=== PATIENT | female | born 1945 | race Caucasian/White ===

== ENCOUNTER → 2019-09-03 13:24 | Outpatient (CLI) | payer MEDICARE, SELFPAY ==
--- NOTE | ~2019-09-03 | MM_ITS ---
EXAMINATION: MM screening rina BI w kathy HISTORY: Screening mammogram TECHNIQUE: Craniocaudal and mediolateral oblique 3-D tomosynthesis images were obtained and synthetic 2-D images were generated. CAD analysis was submitted and interpreted. COMPARISON: 03/29/2017, 05/10/2013 bilateral digital screening mammogram examinations BREAST PARENCHYMAL COMPOSITION: There are scattered areas of fibroglandular density. FINDINGS: Stable mild fibroglandular asymmetry. Minimal benign calcification. There is no evidence of suspicious mass, calcification, or architectural distortion to suggest malignancy in either breast. There has been no suspicious interval change. IMPRESSION: 1. No mammographic evidence of malignancy. 2. Recommend routine screening mammography in one year. BI-RADS Category 2: Benign finding(s). Reviewed, dictated and finalized at location A. ET BROKER
== END ==
PROVIDERS: PCP Internal Medicine; Visit Provider Internal Medicine
DX: Z12.31 Encounter for screening mammogram for malignant neoplasm of breast (principal)
CPT/HCPCS: 77063; 77067

== ENCOUNTER 2019-09-11 01:38 | Day surgery (SDC) | payer MEDICARE, SELFPAY ==
[2019-09-05 13:58] VITALS: BMI 25.4
[2019-09-11 07:55] VITALS: BP 147/81; PULSE 79; RESP 20; TEMP 36.6; O2SAT 95; BMI 26.4
--- NOTE | 2019-09-11 08:12 | PM.HPGS ---
History of Present Illness History of Present Illness Consent: Risks, benefits, and alternatives have been discussed and questions answered. Patient agrees to proceed with procedure. Chief complaint: pers hx colon polyp Narrative: Nella Aguilera is a 74 year old female Undergoing screening colonoscopy. She has history of polyps removed 10 years ago. [facility] Family History Family History Mother Hypertension Family history of diabetes mellitus in first degree relative Social History Social History Smoking status: Former smoker Second hand tobacco smoke exposure: Yes Smoking end date: 08/07/79 Alcohol intake: current Meds Home Medications and Allergies Home Medications Medication Instructions Recorded Confirmed Type cholecalciferol (vitamin D3) 50 2,000 unit PO DAILY 06/03/19 09/05/19 History mcg (2,000 unit) tablet lisinopril 10 mg tablet 10 mg PO DAILY 06/03/19 09/05/19 History verapamil 180 mg tablet,extended 180 mg PO DAILY 06/03/19 09/05/19 History release rivaroxaban 20 mg tablet 20 mg PO QPM #90 tablet 08/12/19 09/05/19 Rx levothyroxine 125 mcg PO DAILY 09/05/19 09/05/19 History atorvastatin 40 mg tablet 40 mg PO DAILY #90 tablet 09/10/19 Rx losartan 100 1 tablet PO DAILY 09/10/19 History mg-hydrochlorothiazide 12.5 mg tablet Allergies Allergy/AdvReac Type Severity Reaction Status Date / Time codeine AdvReac Unknown Nausea Verified 09/11/19 08:05 Exam Const: General: alert Orientation/consciousness: patient oriented x3 Resp: Auscultation: clear to auscultation bilaterally Cardio: Rhythm: regular rhythm GI: GI Palp: Yes Soft to palpation and No Tenderness to palpation present (GI) Neuro: General: patient oriented x3 Assessment and Plan Assessment and plan (1) Colon cancer screening: Code(s): Z12.11 - Encounter for screening for malignant neoplasm of colon Status: Acute Assessment and Plan: Colonoscopy with possible biopsy or polypectomy or cautery or injection of substances.
--- NOTE | 2019-09-11 08:19 | WPDANESEPPF ---
Anes - Initial Pre Proc Eval Procedure: Operation Date: 09/11/19 09:00 Proposed Procedures p Screening Colonoscopy - Fred Ferrer MD Date/Time: 09/11/19 08:19 Surgeon: Fred Ferrer MD Pre Op Diagnosis: pers hx colon polyp Patient Data Age: 74 Gender: F Height: 1.52 m Weight: 59 kg Allergies Allergy/AdvReac Type Severity Reaction Status Date / Time codeine AdvReac Unknown Nausea Verified 09/11/19 08:05 Home Medications Medication Instructions Recorded Confirmed Type cholecalciferol (vitamin D3) 50 2,000 unit PO DAILY 06/03/19 09/05/19 History mcg (2,000 unit) tablet lisinopril 10 mg tablet 10 mg PO DAILY 06/03/19 09/05/19 History verapamil 180 mg tablet,extended 180 mg PO DAILY 06/03/19 09/05/19 History release rivaroxaban 20 mg tablet 20 mg PO QPM #90 tablet 08/12/19 09/05/19 Rx levothyroxine 125 mcg PO DAILY 09/05/19 09/05/19 History atorvastatin 40 mg tablet 40 mg PO DAILY #90 tablet 09/10/19 Rx losartan 100 1 tablet PO DAILY 09/10/19 History mg-hydrochlorothiazide 12.5 mg tablet Patient hx anesthesia problems: none Family hx anesthesia problems: none PMFSH Past Medical History Medical History (Updated 09/11/19 @ 08:21 by Tanvir Cantu MD) Atrial fibrillation Cancer THYROID CANCER 2010-IODINE RADIATON PRIOR TO SURGERY Essential (primary) hypertension Hypothyroidism Mixed hyperlipidemia Osteopenia Family History Family History Mother Hypertension Family history of diabetes mellitus in first degree relative Social History Social History Smoking status: Former smoker Second hand tobacco smoke exposure: Yes Smoking end date: 08/07/79 Alcohol intake: current Anes - Eval Final PreProcedure Day of Procedure 09/11/19 08:19 Patient weight: overweight Heart: regular rate and rhythm Lungs: clear to auscultation and normal air movement Airway: Mallampati scale class II Neurological: alert and oriented Last oral intake: >/= 8 hours ASA classification: III Emergent: no Anesthetic plan: proceed Anesthesia type and monitoring: general GIVS Informed Consent: The patient's anesthetic plan and its attendant risks and benefits were discussed with the patient/family/POA. Questions were solicited and answers provided to the satisfaction of the patient/family/POA.
[2019-09-11] MEDS: LACTATED RINGERS 1,000 ML 150 ML IV CONT (08:29)
[2019-09-11 09:12] VITALS: BP 116/82; PULSE 94; RESP 22; O2SAT 100
[2019-09-11 09:22] VITALS: BP 125/76; PULSE 73; RESP 24; O2SAT 100
[2019-09-11 09:32] VITALS: BP 131/76; PULSE 71; RESP 23; O2SAT 100
== END 2019-09-11 09:41 | disposition home or self-care (01) ==
PROVIDERS: PCP Internal Medicine; Visit Provider Internal Medicine Gastroenterology
PROC: 0DJD8ZZ Inspection of Lower Intestinal Tract, Via Natural or Artificial Opening Endoscopic (ICD-10-PCS; CPT 45378; principal; 2019-09-11 09:00)
DX: Z12.11 Encounter for screening for malignant neoplasm of colon (principal); D12.3 Benign neoplasm of transverse colon; D12.5 Benign neoplasm of sigmoid colon; D12.8 Benign neoplasm of rectum; K64.8 Other hemorrhoids; K64.4 Residual hemorrhoidal skin tags; K57.30 Diverticulosis of large intestine without perforation or abscess without bleeding; I48.91 Unspecified atrial fibrillation; I10 Essential (primary) hypertension; E78.2 Mixed hyperlipidemia; E89.0 Postprocedural hypothyroidism; M85.80 Other specified disorders of bone density and structure, unspecified site; Z85.850 Personal history of malignant neoplasm of thyroid; Z79.01 Long term (current) use of anticoagulants; Z87.891 Personal history of nicotine dependence
CPT/HCPCS: 45385; 45380; 88305; J2704; J7120

== ENCOUNTER 2020-11-27 23:08 | Emergency (ER) | payer MEDICARE, SELFPAY ==
--- NOTE | ~2020-11-27 | CT_ITS ---
EXAMINATION: CT brain wo con DATE: 11/28/2020 01:26 INDICATION: Syncope. TECHNIQUE: Computed tomography (CT) of the head was performed without intravenous contrast. The mA wa s adjusted according to patient size. Iterative reconstruction technique was employed. The dose-lengt h product was 605.33 mGy-cm. COMPARISON: Head CT 11/12/2010 FINDINGS: There is a calcified 14 x 12 mm extra-axial mass at the anterior falx, consistent with a me ningioma. There is a chronic 13 mm cyst inferomedial to the basal ganglia, likely a prominent perivas cular space or arachnoid cyst. There are scattered areas of low attenuation in the cerebral white mat ter, which is within normal limits for the patient's age. There is no acute ischemic infarct or intra cranial hemorrhage. The ventricles are normal in size. There are osteomas in the frontal sinus. The m astoid air cells are normal. There is chronic anteroposterior elongation of the ocular globes. There are likely changes of ocular lens replacement surgeries. IMPRESSION: 1. 14 mm calcified extra-axial mass in the anterior falx, consistent with a meningioma, worsened from 6 mm on 11/12/2010. Reviewed, dictated and finalized at location A. IMPRESSION: 1. 14 mm calcified extra-axial mass in the anterior falx, consistent with a men ingioma, worsened from 6 mm on 11/12/2010.
--- NOTE | ~2020-11-27 | CT_ITS ---
EXAMINATION: CT cervical spine wo con DATE: 11/28/2020 01:26 INDICATION: Neck injury. TECHNIQUE: Computed tomography (CT) of the cervical spine was performed without intravenous contrast. Automated exposure control and iterative reconstruction technique were employed. The dose-length pro duct was 250.54 mGy-cm. COMPARISON: Cervical spine CT 11/12/2010 FINDINGS: There is 2 mm retrolisthesis of C4 on C5. There is 14 degrees levoscoliosis of cervical spi ne. Vertebral body heights are normal. There is a hemangioma in T2 vertebral body. There are multiple stable lytic lesions, consistent with osteopenia. There is mildly decreased disc height at C3-C4 and moderately decreased disc height from C4-3 C5 through C6-C7. There are changes of thyroidectomy. The following disc levels are specifically discussed: C2-C3: There is no uncovertebral joint osteoarthritis. There is mild bilateral facet joint osteoarthr itis. There is no neural foraminal stenosis. There is no central canal stenosis. C3-C4: There is moderate right and mild left uncovertebral joint osteoarthritis. There is moderate ri ght and mild left facet joint osteoarthritis. There is mild bilateral neural foraminal stenosis. Ther e is no central canal stenosis. C4-C5: There is severe bilateral uncovertebral joint osteoarthritis. There is moderate left facet shannen nt osteoarthritis. There is mild bilateral neural foraminal stenosis. There is mild central canal brian nosis. C5-C6: There is severe bilateral uncovertebral joint osteoarthritis. There is moderate right and mild left facet joint osteoarthritis. There is mild bilateral neural foraminal stenosis. There is mild ce ntral canal stenosis. C6-C7: There is mild bilateral uncovertebral joint osteoarthritis. There is severe bilateral facet alyx int osteoarthritis. There is mild right neural foraminal stenosis. There is mild central canal stenos is. C7-T1: There is no uncovertebral joint osteoarthritis. There is moderate right and severe left facet joint osteoarthritis. There is mild bilateral neural foraminal stenosis. There is no central canal st enosis. IMPRESSION: 1. No fracture. 2. Moderate cervical spondylosis. 3. Cervical levoscoliosis. Reviewed, dictated and finalized at location A.
[2020-11-27 23:12] VITALS: BP 130/69; PULSE 90; RESP 16; TEMP 36.5; O2SAT 94
[2020-11-27 23:18] VITALS: PULSE 80
--- NOTE | 2020-11-28 00:22 | ECG_ITS ---
Measurements Intervals [place] Rate: 85 P: 251 NH: 121 QRS: -50 QRSD: 108 T: 71 QT: 396 QTc: 471 Interpretive Statements SINUS OR ECTOPIC ATRIAL RHYTHM INCOMPLETE RIGHT BUNDLE BRANCH BLOCK INFERIOR INFARCT, AGE INDETERMINATE BORDERLINE ST-T WAVE ABNORMALITY- ANTEROLAT/HIGH LAT LEADS BASELINE WANDER- AVR, AVL, V1 ABNORMAL ECG Electronically Signed On 11-28-2020 7:34:04 CDT by Pierce Clemente D.O.
[2020-11-28] MEDS: SODIUM CHLORIDE 0.9% IV 1,000 ML 999 ML IV CONT (00:58)
[2020-11-28 01:17] LABS: Basophils Absolute Auto 0.1 K/mm3 (0.0-0.1); Basophils Percent Auto 0.6 % (0.2-1.2); Eosinophils Absolute Auto 0.1 K/mm3 (0-0.3); Eosinophils Percent Auto 0.9 % (0-4.4); Hematocrit 42.7 % (37.0-47.0); Hemoglobin 14.2 g/dL (12.0-15.0); Immature Granulocyte Absolute 0.02 K/mm3 (0.00-0.031); Immature Granulocyte Percent A 0.2 % (0-0.5); Lymphocytes Absolute Auto 2.17 K/mm3 (0.9-3.2); Lymphocytes Percent Auto 26.5 % (18.3-44.2); Mean Corpuscular HGB Conc 33.3 g/dl (32-36); Mean Corpuscular Hemoglobin 32.3 pg (26-34); Mean Platelet Volume 9.2 fl (7.4-10.4); Monocytes Absolute Auto 0.5 K/mm3 (0.1-0.6); Monocytes Percent Auto 6.4 % (2.6-8.5); Neutrophils Absolute Auto 5.4 K/mm3 (1.3-6.7); Neutrophils Percent Auto 65.4 % (45.5-73.1); Platelet Count Result 266 k/mm3 (150-375); Red Cell Distribution Width 12.6 % (11.5-14.5); White Blood Count 8.2 K/mm3 (4.5-10.0)
--- NOTE | 2020-11-28 01:21 | ED.GENADULT ---
HPI - General Adult General Chief complaint: Syncope Stated complaint: ams, snycope Time Seen by Provider: 11/28/20 00:13 History of Present Illness HPI narrative: Patient 75-year-old female presents the emergency department with chief complaint of syncope. Per the patient's family she was at a local bar and had a few glasses of wine with her sister. The patient passed out at the bar was carried home and passed out again family decided to call EMS and the patient was transported to the emergency department. Currently the patient states that she feels fine she just feels tired and wants to sleep patient reports that she had 3 glasses of wine at the bar she does report that she is on blood thinners being on a novel anticoagulant. The patient denies headache. Related Data Home Medications Medication Instructions Recorded Confirmed cholecalciferol (vitamin D3) 50 2,000 unit PO DAILY 06/03/19 08/27/20 mcg (2,000 unit) tablet levothyroxine 125 mcg PO DAILY 09/05/19 08/27/20 Allergies Allergy/AdvReac Type Severity Reaction Status Date / Time codeine AdvReac Unknown Nausea Verified 02/28/20 08:04 Review of Systems Review of Systems: Narrative: A 10 system review of systems was completed on the patient and is negative except for what is stated in the HPI. Nursing and ancillary documentation was reviewed. PMFSH Past Medical History Medical History Atrial fibrillation Cancer THYROID CANCER 2010-IODINE RADIATON PRIOR TO SURGERY Essential (primary) hypertension Hypothyroidism Kidney stone Mixed hyperlipidemia Osteopenia Surgical History Surgical History History of hernia repair History of thyroid surgery Family History Family History Mother Hypertension Family history of diabetes mellitus in first degree relative Social History Social History Smoking status: Former smoker Second hand tobacco smoke exposure: Yes Smoking end date: 08/07/79 Alcohol intake: current Exam Narrative: Exam Narrative: GENERAL: Well-appearing, well-nourished, and in no acute distress. HEAD: Normocephalic, atraumatic. EYES: PERRLA and EOMI. ENT: Nares clear, no rhinorrhea or epistaxis. Mucous membranes moist. NECK: Supple. CHEST: Clear to auscultation. No respiratory distress. HEART: Regular rate and rhythm. No murmur heard. Normal peripheral pulses. ABDOMEN: Soft, nontender, nondistended, normal active bowel sounds. EXTREMITIES: Normal range of motion. No edema. SKIN: Warm, dry, no rash. NEURO: No focal deficits. Alert and oriented x3. PSYCH: Normal mood and affect. Course Vital Signs Vital signs: Vital Signs Temperature 36.5 C 11/27/20 23:12 Pulse Rate 90 11/27/20 23:12 Respiratory Rate 16 11/27/20 23:12 Blood Pressure 130/69 11/27/20 23:12 Pulse Oximetry 94 11/27/20 23:12 Temperature 36.5 C 11/27/20 23:12 Pulse Rate 84 11/28/20 02:00 Respiratory Rate 16 11/28/20 02:00 Blood Pressure 119/76 11/28/20 02:00 Pulse Oximetry 95 11/28/20 02:00 Medical Decision Making Vital Signs Vital Signs: Vital Signs Temperature 36.5 C 11/27/20 23:12 Pulse Rate 90 11/27/20 23:12 Respiratory Rate 16 11/27/20 23:12 Blood Pressure 130/69 11/27/20 23:12 Pulse Oximetry 94 11/27/20 23:12 Temperature 36.5 C 11/27/20 23:12 Pulse Rate 84 11/28/20 02:00 Respiratory Rate 16 11/28/20 02:00 Blood Pressure 119/76 11/28/20 02:00 Pulse Oximetry 95 11/28/20 02:00 Lab Data Result diagrams: 11/28/20 00:45 11/28/20 00:45 Labs: Lab Results 11/28/20 11/28/20 11/28/20 Range/Units 00:45 00:45 00:45 WBC 8.2 (4.5-10.0) K/mm3 RBC 4.40 (4.2-5.4) M/mm3 Hgb 14.2 (12.0-15.0)
[2020-11-28 01:23] LABS: Add Urine Microscopic? YES; Amorphous Sediment Urine Few; Appearance Urine Cloudy (Clear); Bacteria Urine 4+ /hpf; Bilirubin Urine Negative (Negative); Blood Urine 1+ (Negative); Glucose Urine UA Negative (Negative); Ketones Urine Negative (Negative); Leukocyte Esterase Ur Trace LEU/UL (Negative); Mucus Urine Rare /lpf; Nitrate Urine Negative (Negative); Protein Urine Negative (Negative); Specific Grav Ur 1.008 (1.001-1.035); Squamous Epithelial Cell Urine Rare /hpf (Few); Urobilinogen Urine Negative mg/dL (<2.0)
[2020-11-28 01:24] LABS: Color Urine Yellow (Yellow)
[2020-11-28 01:26] LABS: Acetaminophen < 10 ug/mL (10-30); Ethanol 226 mg/dL (<10); INR 1.2; Partial Thromboplastin Time 35.7 SECONDS (22.3-36.8); Prothrombin Time 15.8 Seconds (11.1-14.7); Salicylate < 1.0 mg/dL (2-20)
[2020-11-28 01:33] LABS: Alanine Aminotransferase 28 U/L (4-35); Albumin Level 4.3 g/dL (3.5-5.1); Alkaline Phosphatase 75 U/L (38-126); Anion Gap 11 mmol/L (8-16); Aspartate Amino Transferase 33 U/L (14-36); Bilirubin,Total 0.2 mg/dL (0.2-1.3); Blood Urea Nitrogen 19 mg/dL (7-17); Calcium 9.6 mg/dL (8.4-10.2); Carbon Dioxide 24 mmol/L (22-30); Chloride 107 mmol/L (98-107); Estimated CRCL calculation 58 ml/min; Estimated Glomerular Filt Rate > 60; Glucose 110 mg/dL (65-105); Magnesium 1.9 mg/dL (1.6-2.3); Potassium 3.6 mmol/L (3.4-5.0); Sodium 142 mmol/L (137-145)
[2020-11-28 01:38] LABS: Troponin I < 0.012 ng/mL (0.000-0.034)
[2020-11-28 01:41] LABS: Lactic Acid Reflex 2.4 mmol/L (0.7-2.1)
[2020-11-28 01:52] LABS: Amphetamine Screen Urine Negative (Negative); Barbiturate Screen Urine Negative (Negative); Benzodiazepines Screen Urine Negative (Negative); Cannabinoid Screen Urine Negative (Negative); Cocaine Screen Urine Negative (Negative); Methadone Screen Urine Negative (Negative); Opiate Screen Urine Negative (Negative); Phencyclidine Screen Urine Negative (Negative)
[2020-11-28 02:00] VITALS: BP 119/76; PULSE 84; RESP 16; O2SAT 95
[2020-11-28 04:12] LABS: Reflex Lactic Acid Yes or No Add Lactic
== END 2020-11-28 03:08 | disposition home or self-care (01) ==
PROVIDERS: Emergency Provider Emergency Medicine; PCP Internal Medicine
DX: D32.0 Benign neoplasm of cerebral meninges (principal); F10.920 Alcohol use, unspecified with intoxication, uncomplicated; Y90.7 Blood alcohol level of 200-239 mg/100 ml; I48.91 Unspecified atrial fibrillation; I10 Essential (primary) hypertension; E03.9 Hypothyroidism, unspecified; M85.80 Other specified disorders of bone density and structure, unspecified site; E78.2 Mixed hyperlipidemia; Z79.01 Long term (current) use of anticoagulants; Z87.891 Personal history of nicotine dependence; Z85.850 Personal history of malignant neoplasm of thyroid; Z87.442 Personal history of urinary calculi; I45.10 Unspecified right bundle-branch block; R94.31 Abnormal electrocardiogram [ECG] [EKG]; M47.812 Spondylosis without myelopathy or radiculopathy, cervical region; R82.998 Other abnormal findings in urine
CPT/HCPCS: 36415; 70450; 72125; 80053; 80307; 81001; 83605; 83735; 84484; 85025; 85610; 85730; 87077; 87086; 87088; 87147; 87181; 87186; 93005; 96360; 99284; J7030

== ENCOUNTER → 2021-03-16 10:58 | Outpatient (CLI) | payer MEDICARE, SELFPAY ==
--- NOTE | ~2021-03-16 | XR_ITS ---
XR foot LT min 3V DATE: 03/16/2021 11:19 INDICATION: Left foot pain TECHNIQUE: 4 views COMPARISON: None FINDINGS: Mild plantar calcaneal enthesopathy. Diffuse osteopenia. Mild osteoarthritis at the first metatarsophalangeal joint. Os tibiale externum, normal variant. No fracture, dislocation, periosteal reaction or bone destruction. IMPRESSION: Osteopenia Mild plantar calcaneal enthesopathy Osteoarthritis at first metatarsophalangeal joint Reviewed, dictated and finalized at location A.
== END ==
PROVIDERS: PCP Internal Medicine; Visit Provider Internal Medicine
DX: M85.872 Other specified disorders of bone density and structure, left ankle and foot (principal); M77.32 Calcaneal spur, left foot; M19.072 Primary osteoarthritis, left ankle and foot
CPT/HCPCS: 73630

== ENCOUNTER 2021-12-31 09:41 | Emergency (ER) | payer MEDICARE, SELFPAY ==
--- NOTE | ~2021-12-31 | CT_ITS ---
EXAMINATION: CTA chest DATE: 12/31/2021 11:51 INDICATION: Right lateral chest wall pain. Bilateral breast pain. Fall. TECHNIQUE: Computed tomographic angiography (CTA) of the chest was performed with 100 mL Omnipaque 30 0 intravenous contrast. Automated exposure control and iterative reconstruction technique were employ ed. The dose-length product was 224.65 mGy-cm. Maximum intensity projection 3D-reconstructions of the aorta and other arteries were constructed by the technologist on a separate workstation. COMPARISON: CT abdomen and pelvis 09/08/2017 FINDINGS: There is mild emphysema. There is mild atelectasis bilaterally. No pleural effusion. There are changes of thyroidectomy. The heart size is normal. No pericardial effusion. There is ectasia of ascending aorta measuring 4.1 cm. There is calcified atherosclerosis of the aorta and many of the ot er arteries. There is a 12 mm cyst in the liver. There is a chronic 19 mm mass in left hepatic lobe w ith peripheral interrupted puddling of contrast, consistent with a hemangioma. There are surgical momo nges in the stomach. There is a fracture of anteroinferior glenoid of left scapula. There is thoracic kyphosis, dextroscoliosis, and moderate spondylosis. IMPRESSION: 1. Fracture of anteroinferior glenoid of left scapula. 2. Ectasia of ascending aorta measuring 4.1 cm. 3. Mild emphysema. Reviewed, dictated and finalized at location A.
[2021-12-31 09:52] VITALS: BP 177/91; PULSE 97; RESP 16; TEMP 36.5; O2SAT 99
--- NOTE | 2021-12-31 09:58 | ED.FALL ---
HPI - Fall General Chief Complaint: Fall Stated Complaint: Bilateral Breast Pain after Fall Monday Time Seen by Provider: 12/31/21 09:58 Source: patient Mode of arrival: ambulatory Limitations: no limitations History of Present Illness HPI Narrative: Patient is a 77-year-old female who presents the ED with report of R lateral chest wall pain. Patient reports she was walking at [employer] on Monday afternoon when she tripped and fell. Denied any prodromal symptoms. She states she fell onto her knee first and then forward onto her chest. She denies any pain in her knee, but does report having pain in her chest wall, above her breasts bilaterally, since then. The pain is worse in her right lateral chest, near her axillary region. She states the pain is worse with taking a deep breath. She denies any difficulty breathing or catching breath but does report it is hard to take a deep breath due to the pain. She called her doctor about her pain today and was referred to the ED for further evaluation. Patient is on Xarelto due to a history of atrial fibrillation. She has been taking Tylenol at home which she reports does temporarily relieve her pain. Denies any abdominal pain, fever, chills, nausea, vomiting, back pain, head injury, loss of consciousness. Related Data Home Medications Medication Instructions Recorded Confirmed cholecalciferol (vitamin D3) 50 2,000 unit PO DAILY 06/03/19 10/07/21 mcg (2,000 unit) tablet rivaroxaban 20 mg tablet (Xarelto) See Rx Instructions .Route .COMPLEX 10/07/21 10/07/21 Allergies Allergy/AdvReac Type Severity Reaction Status Date / Time codeine AdvReac Unknown Nausea Verified 10/07/21 12:51 Review of Systems Review of Systems: CONSTITUTIONAL: Denies fever, chills. CARDIOVASCULAR: Denies palpitations or edema. RESPIRATORY: Reports pain with inspiration, difficulty taking deep breath. Denies cough or dyspnea. GASTROINTESTINAL: Denies abdominal pain, nausea, vomiting. MUSCULOSKELETAL: Reports bilateral chest wall pain above breasts. Denies back pain, knee pain. NEUROLOGIC: Denies headache, HI, LOC, dizziness, lightheadedness. All systems reviewed & are unremarkable except as noted in HPI and below [facility] Past Medical History Medical History Atrial fibrillation Cancer THYROID CANCER 2010-IODINE RADIATON PRIOR TO SURGERY Essential (primary) hypertension Hypothyroidism Kidney stone Mixed hyperlipidemia Osteopenia Surgical History Surgical History History of hernia repair History of thyroid surgery Family History Family History Mother Hypertension Family history of diabetes mellitus in first degree relative Social History Social History (Updated 12/31/21 @ 10:16 by Jennifer Ruelas PA-C) Smoking packs per day: 0.15 Smoking cigarettes per day: 3.0 Years smoked: 4 Smoking pack-years: 0.60 Smoking status: Former smoker Second hand tobacco smoke exposure: Yes Smoking end date: 08/07/79 Alcohol intake: current Substance use: never Exam Narrative: GENERAL: Well appearing, well-nourished, non-toxic, in no acute distress. HEAD: Normocephalic, atraumatic. NECK: Supple. No adenopathy, no masses. RESPIRATORY: Airway patent, respirations nonlabored. Clear to auscultation bilaterally, no rales, rhonchi, wheezing. CARDIOVASCULAR: Regular rate and rhythm without murmurs, rubs, or gallops. Peripheral pulses 2+ and equal bilaterally. ABDOMINAL: Soft, nontender, nondistended, no hepatosplenomegaly. Normoactive BS. MUSCULOSKELETAL: Moves all extremities. Strength/ROM intact without gross deformities. TTP of R upper lateral chest wall, near axillary region. No significant tenderness to palpation over left upper chest wall. Full range of motion of bilateral upper extremities. No midline cervical or thoracic lumbar spi
--- NOTE | 2021-12-31 10:20 | PC.NURSE ---
pt awaiting provider assessment.
[2021-12-31 10:51] LABS: Basophils Absolute Auto 0.1 K/mm3 (0.0-0.1); Basophils Percent Auto 1.1 % (0.2-1.2); Eosinophils Absolute Auto 0.1 K/mm3 (0-0.3); Eosinophils Percent Auto 2.3 % (0-4.4); Hematocrit 39.2 % (37.0-47.0); Immature Granulocyte Absolute 0.01 K/mm3 (0.00-0.031); Immature Granulocyte Percent A 0.2 % (0-0.5); Lymphocytes Absolute Auto 2.04 K/mm3 (0.9-3.2); Lymphocytes Percent Auto 36.2 % (18.3-44.2); Mean Corpuscular HGB Conc 33.2 g/dl (32-36); Mean Corpuscular Hemoglobin 31.9 pg (26-34); Mean Corpuscular Volume 96.1 fl (80-100); Mean Platelet Volume 8.9 fl (7.4-10.4); Monocytes Absolute Auto 0.7 K/mm3 (0.1-0.6); Monocytes Percent Auto 11.5 % (2.6-8.5); Neutrophils Absolute Auto 2.7 K/mm3 (1.3-6.7); Neutrophils Percent Auto 48.7 % (45.5-73.1); Platelet Count Result 237 k/mm3 (150-375); Red Blood Count 4.08 M/mm3 (4.2-5.4); Red Cell Distribution Width 12.4 % (11.5-14.5); White Blood Count 5.6 K/mm3 (4.5-10.0)
--- NOTE | 2021-12-31 10:55 | PC.NURSE ---
Pt awaiting ct
[2021-12-31 11:02] LABS: INR 1.4; Prothrombin Time 16.9 Seconds (11.1-14.7)
[2021-12-31 11:03] LABS: Partial Thromboplastin Time 35.4 SECONDS (22.3-36.8)
[2021-12-31 11:04] LABS: Anion Gap 7 mmol/L (8-16); Blood Urea Nitrogen 24 mg/dL (7-17); Carbon Dioxide 25 mmol/L (22-30); Chloride 108 mmol/L (98-107); Estimated CRCL calculation 49 ml/min; Estimated Glomerular Filt Rate > 60; Glucose 96 mg/dL (65-110); Potassium 3.8 mmol/L (3.4-5.0); Sodium 140 mmol/L (137-145)
[2021-12-31 12:00] VITALS: BP 154/68; PULSE 72; RESP 16; O2SAT 99
--- NOTE | 2021-12-31 14:28 | PC.NURSE ---
Provider at bedside for update.
[2021-12-31 14:42] VITALS: BP 153/68; PULSE 78; RESP 16; O2SAT 100
== END 2021-12-31 14:43 | disposition home or self-care (01) ==
PROVIDERS: Physician Assistant; Emergency Provider Emergency Medicine; PCP Internal Medicine
DX: S42.102A Fracture of unspecified part of scapula, left shoulder, initial encounter for closed fracture (principal); I77.819 Aortic ectasia, unspecified site; J43.9 Emphysema, unspecified; W01.0XXA Fall on same level from slipping, tripping and stumbling without subsequent striking against object, initial encounter
CPT/HCPCS: 36415; 71275; 80048; 85025; 85610; 85730; 99284; A4565; Q9967

== ENCOUNTER 2022-03-09 11:10 | Outpatient (CLI) | payer MEDICARE, SELFPAY ==
--- NOTE | ~2022-03-09 | CT_ITS ---
EXAMINATION: CT brain wo con DATE: 03/09/2022 11:35 INDICATION: Patient fell and struck back of head a few weeks ago. TECHNIQUE: Computed tomography (CT) of the head was performed without intravenous contrast. The mA wa s adjusted according to patient size. Iterative reconstruction technique was employed. Exam dose: 60 5.33 mGy-cm total exam DLP. COMPARISON: 11/24/2020 CT brain FINDINGS: Densely calcified meningioma along the anterior falx is measures up to approximately 13.8 x 16 mm currently, compared to approximately 15 x 12 mm on 11/28/2020. Stable approximately 13 mm cyst and inferomedial aspect right basal ganglia, stable since 11/24/2020. No interval intracranial mass lesion or hemorrhage, midline shift or mass effect. No subdural or epid ural hematoma. There is moderate cerebral and cerebellar volume loss consistent with patient age. Nonspecific diminished attenuation cerebral white matter, likely due to chronic small vessel ischemic changes. Minimal cerebral atherosclerotic calcification. No orbital mass lesion. Osteomas the frontal sinuses. The included paranasal sinuses and mastoid air cells are normally devel oped and aerated otherwise. No fracture or bone destruction of the cranial vault. IMPRESSION: No acute intracranial finding or significant change since 11/28/2020, other than slight i ncreased size of a heavily calcified angioma along the anterior falx Reviewed, dictated and finalized at Location A. Reviewed, dictated and finalized at location B. IMPRESSION: No acute intracranial finding or significant change since , other than slight increased size of a heavily calcified angioma along the an terior falx
== END 2022-03-09 11:11 | disposition home or self-care (01) ==
LOC: ANHIMG 11:11
PROVIDERS: PCP Internal Medicine; Visit Provider Internal Medicine
DX: S09.90XA Unspecified injury of head, initial encounter (principal); X58.XXXA Exposure to other specified factors, initial encounter
CPT/HCPCS: 70450

== ENCOUNTER 2022-03-14 10:50 | Outpatient (CLI) | payer MEDICARE, SELFPAY ==
--- NOTE | 2022-03-16 19:37 | P.PCNHOL_ITS ---
Holter/Event Monitor Holter/Event Monitor Date of procedure: 03/16/22 Holter/Event Procedure: 24 Hr Holter Monitor Diagnosis: Atrial fibrillation Indications: 77-year-old female with atrial fibrillation Image/Tracing Quality: Good Finding: The patient was monitored for 24 hours. Underlying rhythm was sinus with a mi nimum heart rate of 48 beats per minute, average heart rate of 63 beats per minute and maximum heart rate of 108 beats per minute. Thirty-eight PVCs were seen. There 866 APCs were seen with 1 6 beat run of SVT, rate 105 BPM. No atrial fibrillation was noted. There are no pauses, av block, or ventricular tachycardia. No symptoms were recorded. Conclusion: Fairly unremarkable Holter monitor Occasional APCs and one 6 beat run of SVT No atrial fibrillation No symptoms recorded
== END 2022-03-14 10:51 | disposition home or self-care (01) ==
LOC: ANHCARD 10:51
PROVIDERS: PCP Internal Medicine; Visit Provider Internal Medicine
DX: I48.91 Unspecified atrial fibrillation (principal)
CPT/HCPCS: 93225; 93226

== ENCOUNTER 2022-12-27 11:35 | Outpatient (CLI) | payer MEDICARE, SELFPAY ==
--- NOTE | ~2022-12-27 | XR_ITS ---
EXAMINATION: XR ankle RT min 3V DATE: 12/27/2022 12:04 INDICATION: Medial right ankle pain, swelling and bruising post injury TECHNIQUE: Anteroposterior, oblique, mortise, and lateral views of the right ankle were obtained. COMPARISON: None. FINDINGS: Alignment is normal. No fracture. Joint spaces are well maintained. Small plantar calcaneal spur. No ankle joint effusion. Soft tissue swelling about the medial malleolus. IMPRESSION: 1. No acute osseous abnormality. Reviewed, dictated and finalized at location A.
== END 2022-12-27 11:36 | disposition home or self-care (01) ==
PROVIDERS: PCP Family Medicine; Visit Provider Nurse Practitioner Family
DX: M25.571 Pain in right ankle and joints of right foot (principal)
CPT/HCPCS: 73610

== ENCOUNTER 2023-03-14 09:31 | Outpatient (CLI) | payer MEDICARE, SELFPAY ==
--- NOTE | ~2023-03-14 | XR_ITS ---
EXAMINATION: XR abdomen/kub 1V DATE: 03/14/2023 10:04 INDICATION: Gross hematuria. TECHNIQUE: A supine view of the abdomen on 3 radiographs was obtained. COMPARISON: CT abdomen and pelvis 03/14/2023 FINDINGS: There are no dilated loops of bowel. There are two 5 mm stones in left kidney. IMPRESSION: 1. Left kidney stones. Reviewed, dictated and finalized at location A. IMPRESSION: 1. Left kidney stones.
--- NOTE | ~2023-03-14 | CT_ITS ---
EXAMINATION: CT abdomen pelvis wo/w con DATE: 03/14/2023 10:24 INDICATION: Gross hematuria. TECHNIQUE: Computed tomography (CT) of the abdomen and pelvis was performed without and with intraven ous contrast using a total of 130 mL Omnipaque-350 intravenous contrast with a double-bolus technique for simultaneous opacification of the renal parenchyma and renal collecting system. Automated exposu re control and iterative reconstruction technique were employed. The dose-length product was 1038.29 mGy-cm. COMPARISON: CT abdomen and pelvis 09/08/2017 FINDINGS: The visualized portions of the lung bases demonstrate mild atelectasis. No pleural effusion. The hear t size is normal. No pericardial effusion. There are changes of gastric bypass procedure. There are c ysts in the liver measuring up to 11 mm. There is a 2.1 cm hyperenhancing mass in the liver, stable f rom 09/08/2017, likely a hemangioma or focal nodular hyperplasia. The gallbladder, spleen, pancreas, an d adrenal glands are normal. There are cysts in the kidneys measuring up to 4 mm on the right. There are two 5 mm stones in left kidney. The ureters are well opacified and are normal. The bladder is not well distended. There is a pessary in the vagina. There are bilateral inguinal hernias containing fa t. There are scattered diverticula in the colon without evidence of diverticulitis. There are no dila roxanne loops of bowel. The appendix is normal. There are no pathologically enlarged lymph nodes. There i s no ascites. There is a benign bone island in right ilium. There is mild lumbar and thoracic spondyl osis. IMPRESSION: 1. Nonobstructing left kidney stones. Reviewed, dictated and finalized at location A.
[2023-03-14 10:04] LABS: Estimated Glomerular Filt Rate > 60
== END 2023-03-14 09:32 | disposition home or self-care (01) ==
PROVIDERS: PCP Family Medicine; Visit Provider Nurse Practitioner Adult Health
DX: R31.0 Gross hematuria (principal); N20.0 Calculus of kidney
CPT/HCPCS: 74018; 74178; Q9967

== ENCOUNTER 2023-04-24 10:05 | Outpatient (CLI) | payer MEDICARE, SELFPAY ==
--- NOTE | ~2023-04-24 | XR_ITS ---
EXAMINATION: XR abdomen/kub 1V INDICATION: Left-sided kidney stone TECHNIQUE: Supine views of the abdomen were obtained on 2 radiographs. COMPARISON: 03/14/2023 FINDINGS: There appears to have been interval treatment of the previously described stone of the left kidney lower pole. A 3 mm stone fragment persists in the left kidney lower pole. No definite stone f ragments are identified along the expected course of the left ureter. There are phleboliths of the pe lvis. A pessary is noted. IMPRESSION: 1. Findings consistent with interval treatment of the previously described left kidney lower pole sto ne with 3 mm stone of the left kidney lower pole but no stones identified on the expected course of t he left ureter. Reviewed, dictated and finalized at location B. IMPRESSION: 1. Findings consistent with interval treatment of the previously described left kidney lower pole stone with 3 mm stone of the left kidney lower pole but no s tones identified on the expected course of the left ureter.
== END 2023-04-24 10:06 | disposition home or self-care (01) ==
PROVIDERS: PCP Family Medicine; Visit Provider Urology
DX: N20.0 Calculus of kidney (principal)
CPT/HCPCS: 74018

== ENCOUNTER 2023-10-27 13:12 | Emergency (ER) | payer MEDICARE, SELFPAY ==
--- NOTE | ~2023-10-27 | XR_ITS ---
EXAMINATION: XR ankle LT min 3V DATE: 10/27/2023 14:21 INDICATION: Medial left ankle pain TECHNIQUE: Anteroposterior, oblique, mortise, and lateral views of the left ankle were obtained. COMPARISON: None. FINDINGS: Alignment is normal. No fracture. Joint spaces are well maintained. Small plantar calcaneal spur. No ankle joint effusion. The soft tissues are unremarkable. IMPRESSION: 1. No left ankle joint effusion or acute osseous abnormalities. Reviewed, dictated and finalized at location A.
[2023-10-27 13:23] VITALS: BP 114/73; PULSE 59; RESP 16; TEMP 37.1; O2SAT 98
--- NOTE | 2023-10-27 14:11 | ED.LOWEXIN ---
HPI - Extremity Injury (Lower) General Chief Complaint: Extremity Injury, Lower Stated Complaint: left ankle pain Time Seen by Provider: 10/27/23 14:05 Source: patient and RN notes reviewed Mode of arrival: ambulatory Limitations: no limitations History of Present Illness HPI Narrative: Patient presents today with a 7-10 day history of left medial ankle pain. She denies any injury or trauma, but states approximately 2 weeks ago she started using an elliptical and treadmill at her gym and and believes this may be contributing to her symptoms. She currently rates her pain 5/10 and has tried ice, heat, and Tylenol without much relief. Denies numbness or tingling in her ankle or foot. Denies swelling or redness. Related Data Home Medications Medication Instructions Recorded Confirmed cholecalciferol (vitamin D3) 50 2,000 unit PO DAILY 06/03/19 10/27/23 mcg (2,000 unit) tablet metoprolol succinate 25 mg 25 mg PO DAILY 10/27/23 10/27/23 tablet,extended release 24 hr Allergies Allergy/AdvReac Type Severity Reaction Status Date / Time codeine AdvReac Unknown Nausea Verified 06/01/23 13:02 Review of Systems Review of Systems: CONSTITUTIONAL: Denies body aches, fever, chills, or sweats. EYES: Denies visual changes, redness, or discharge. ENT: Denies rhinorrhea, congestion, sore throat, or otalgia. CARDIOVASCULAR: Denies chest pain, palpitations, or edema. RESPIRATORY: Denies cough or dyspnea. GASTROINTESTINAL: Denies abdominal pain, nausea, vomiting, or diarrhea. GENITOURINARY: Denies dysuria or hematuria. SKIN: Denies rash, itching, or wounds. MUSCULOSKELETAL: Denies back pain, or myalgia.+ left ankle pain NEUROLOGIC: Denies headache, numbness, tingling, or weakness. PSYCH: Denies depression or anxiety. [facility] Past Medical History Medical History Atrial fibrillation Cancer THYROID CANCER 2010-IODINE RADIATON PRIOR TO SURGERY Essential (primary) hypertension Hypothyroidism Kidney stone Mixed hyperlipidemia Osteopenia Surgical History Surgical History History of hernia repair History of thyroid surgery Family History Family History Mother Hypertension Family history of diabetes mellitus in first degree relative Social History Social History Smoking packs per day: 0.15 Smoking cigarettes per day: 3.0 Years smoked: 4 Smoking pack-years: 0.60 Smoking status: Former smoker Second hand tobacco smoke exposure: Yes Smoking end date: 08/07/79 Alcohol intake: current Drinks per week: 4 Substance use: never Substance use type: does not use Lack of Transportation: No Lack of Food: Never True Current Housing: I Have Housing Concerned About Future Housing: No Difficulty Paying Gas/Electric Bills: No Difficulty Paying for Meds: No Currently Unemployed: No Education: Bachelor's Degree Difficulty w/ Childcare or Family Care: No Comments At time of signature, I have reviewed and agree with nursing past medical, surgical, social and family history unless otherwise noted. Please see nursing chart for further information. There is no relevant family history pertinent to the presenting complaint Exam Narrative: GENERAL: Well-appearing, well-nourished, and in no acute distress. HEAD: Normocephalic, atraumatic. EYES: EOMI. No redness or drainage. Conjunctivae normal. ENT: Mucous membranes pink and moist. NECK: Normal AROM. CHEST: No respiratory distress. EXTREMITIES: Left ankle: Soft tissue tenderness to the anteromedial ankle. No bony tenderness of the medial or lateral malleolus or the Achilles tendon. No tenderness to the foot. Patient has scant edema to the bilateral lower legs and ankles. No erythema or ecchymosis.
== END 2023-10-27 14:55 | disposition home or self-care (01) ==
PROVIDERS: Emergency Provider Nurse Practitioner; PCP Nurse Practitioner
DX: S93.402A Sprain of unspecified ligament of left ankle, initial encounter (principal); X58.XXXA Exposure to other specified factors, initial encounter; I48.91 Unspecified atrial fibrillation; I10 Essential (primary) hypertension; E03.9 Hypothyroidism, unspecified; E78.2 Mixed hyperlipidemia; M85.80 Other specified disorders of bone density and structure, unspecified site; Z85.850 Personal history of malignant neoplasm of thyroid; Z92.3 Personal history of irradiation; Z87.891 Personal history of nicotine dependence
CPT/HCPCS: 73610; 99213; G0463

== ENCOUNTER 2023-12-08 10:37 | Outpatient (CLI) | payer MEDICARE, SELFPAY ==
--- NOTE | ~2023-12-08 | XR_ITS ---
Right ankle Technique: AP, oblique, and lateral views were obtained. Clinical History: Injury Findings: No acute fracture or dislocation is seen. Osseous alignment is anatomic. Ankle mortise and other visualized joint spaces are preserved. Soft tissues are otherwise unremarkable. Impression: Unremarkable right ankle. Reviewed, dictated and finalized at location . Impression: Unremarkable right ankle.
== END 2023-12-08 10:38 | disposition home or self-care (01) ==
LOC: ANHIMG 10:39
PROVIDERS: PCP Nurse Practitioner; Visit Provider Nurse Practitioner
DX: M25.571 Pain in right ankle and joints of right foot (principal)
CPT/HCPCS: 73610